=== PATIENT | male | born 1970 | race Caucasian/White ===

== ENCOUNTER 2019-08-06 08:16 | Day surgery (SDC) | payer BC ==
[~2019-08-06] VITALS: Ht 177.8 cm; Wt 121.1 kg
[~2019-08-06 08:16] MED LIST: ACEBUTCAFT PO; ALBIPROI INH; AZIT250 PO; COLD; COUGH; CREON DR 12,001 EACH PO; HYDACE5 PO; IBUP800; ONDA4 PO; OXYACE5T PO; PRED20 PO; SULTRIDS PO; TOBDEXOPSU OD
[2019-08-06] MEDS ORDERED: LOSA50 (08:33)
[2019-08-06] MEDS ORDERED: OMEPRAZOLE MAGN20 MG (08:33)
[2019-08-06] MEDS ORDERED: IBUP100S (08:33)
--- NOTE | 2019-08-06 09:16 | NUR ---
08/06/19 0916 Flaquita Hull PT UPDATED ON STATUS. ADJUSTED HEAD OF BED FOR COMFORT. CALL LIGHT IN REACH.
== END 2019-08-06 11:11 | disposition home or self-care (01) ==
LOC: ORSCSDS 08:16
PROVIDERS: Student in an Organized Health Care Education/Training Program
PROC: 0DBM8ZX Excision of Descending Colon, Via Natural or Artificial Opening Endoscopic, Diagnostic (ICD-10-PCS; principal; 2019-08-06 09:00)
PROC: 0DB58ZX Excision of Esophagus, Via Natural or Artificial Opening Endoscopic, Diagnostic (ICD-10-PCS; principal; 2019-08-06 09:00)
PROC: 0DBL8ZX Excision of Transverse Colon, Via Natural or Artificial Opening Endoscopic, Diagnostic (ICD-10-PCS; principal; 2019-08-06 09:00)
PROC: 0DBN8ZX Excision of Sigmoid Colon, Via Natural or Artificial Opening Endoscopic, Diagnostic (ICD-10-PCS; principal; 2019-08-06 09:00)
DX: K21.9 Gastro-esophageal reflux disease without esophagitis (principal); K22.70 Barrett's esophagus without dysplasia; Z12.11 Encounter for screening for malignant neoplasm of colon; K63.5 Polyp of colon; K44.9 Diaphragmatic hernia without obstruction or gangrene; I10 Essential (primary) hypertension; G47.33 Obstructive sleep apnea (adult) (pediatric); F17.210 Nicotine dependence, cigarettes, uncomplicated; E66.01 Morbid (severe) obesity due to excess calories; Z68.39 Body mass index [BMI] 39.0-39.9, adult; Z79.899 Other long term (current) drug therapy
CPT/HCPCS: 88305; J2405; J2704; J7040

== ENCOUNTER 2021-08-24 09:57 | Inpatient (IN) | payer BC ==
[~2021-08-24] VITALS: Ht 180.3 cm; Wt 122.5 kg
[~2021-08-24 09:57] MED LIST changes: +IBUP100S; +LOSA50; +OMEPRAZOLE MAGN20 MG
[2021-08-24 10:24] LABS: BASOPHILS ABSOLUTE AUTO 0.03 K/mm3 (0.00-0.23); BASOPHILS PERCENT AUTO 1 % (0-2); EOSINOPHILS ABSOLUTE AUTO 0.02 K/mm3 (0.00-0.68); EOSINOPHILS PERCENT AUTO 0 % (0-6); Hematocrit 48.3 % (37.0-53.0); Hemoglobin 16.1 g/dL (13.5-17.5); IMMATURE GRAN ABSOLUTE AUTO 0.02 K/mm3 (0.00-0.10); IMMATURE GRAN PERCENT AUTO 0 % (0-1); LYMPHOCYTES ABSOLUTE AUTO 1.47 K/mm3 (0.84-5.20); LYMPHOCYTES PERCENT AUTO 29 % (21-46); MONOCYTES ABSOLUTE AUTO 0.29 K/mm3 (0.16-1.47); MONOCYTES PERCENT AUTO 6 % (4-13); Mean Corpuscular HGB 29.7 pg (26.0-34.0); Mean Corpuscular HGB Conc 33.3 g/dL (31.5-36.5); Mean Corpuscular Volume 89 fL (80-100); Mean Platelet Volume 9.4 fL (9.1-12.4); NEUTROPHILS ABSOLUTE AUTO 3.31 K/mm3 (1.96-9.15); NEUTROPHILS PERCENT AUTO 64 % (41-73); Platelet Count 208 K/mm3 (150-400); RDW Coefficient Variation 12.4 % (11.7-14.2); RDW Standard Deviation 40.6 fL (35.1-46.3); Red Blood Cell Count 5.42 M/mm3 (4.30-5.90); White Blood Cell Count 5.14 K/mm3 (4.00-11.30)
[2021-08-24 10:43] LABS: Anion Gap 5 mmol/L (6-16); Blood Urea Nitrogen 15 mg/dL (8-24); Bun/Creatinine Ratio 14.2 (12.0-20.0); CO2, Blood 30 mmol/L (21-32); Calcium, Blood 9.5 mg/dL (8.5-10.1); Chloride, Blood 105 mmol/L (98-108); Creatinine, Blood 1.06 mg/dL (0.60-1.20); Glomerular Filtration Rate >60 (60-); Glucose, Blood 151 mg/dL (70-99); Potassium, Blood 4.3 mmol/L (3.5-5.5); Sodium, Blood 140 mmol/L (136-145); Troponin I <0.015 ng/mL (0.000-0.040)
[2021-08-24 13:43] LABS: Influenza A, PCR NEGATIVE (NEGATIVE); Influenza B, PCR NEGATIVE (NEGATIVE); Resp Syncytial Virus, PCR NEGATIVE (NEGATIVE); SARS-Cov-2 (COVID-19) PCR, MMC NEGATIVE (NEGATIVE)
[2021-08-24 14:47] LABS: CHOL/HDL RATIO 4.2; Cholesterol 191 mg/dL (50-200); HDL Cholesterol 45 mg/dL (>39); Low Density Lipoprotein Chol 91 mg/dL (0-110); Triglycerides 276 mg/dL (30-160); Very Low Density Lipoprot Chol 55 mg/dL (6-32)
--- NOTE | 2021-08-25 06:11 | NUR ---
VSS. IND IN ROOM. DENIES CP/N/V. TROPONINS NEGATIVE THROUGHOUT SHIFT. STRESS TEST 08/25. NO ISSUES THROUGHOUT SHIFT. WILL CONTINUE TO MONITOR
--- NOTE | 2021-08-25 17:40 | NUR ---
PATIENT CURRENTLY SITTING UP IN CHAIR WITH NO SIGNS OR SYMPTOMS ACUTE DISTRESS NOTED. CALL LIGHT AND WATER IN EASY REACH. ABLE TO MAKE NEEDS AND WANTS KNOWN. FIRST PART OF STRESS TEST DONE TODAY, 2ND PART WILL BE TOMORROW MORNING. PATIENT IS TO BE NPO AFTER MIDNIGHT FOR STRESS TEST TOMORROW. NO CAFFEEINE WELL. PATIENT IS AWARE OF THESE DIRECTIONS. WILL MONITOR.
--- NOTE | 2021-08-26 04:06 | NUR ---
SHIFT SUMMARY PT ON TELE, SINUS 70. NO O2. CPAP. L AC IV. CARDIAC DIET. SECOND PART OF STRESS TEST TO BE DONE TODAY. NPO AFTER MIDNIGHT. PT A&O. NO ACUTE CHANGES THROUGHOUT SHIFT. CALL LIGHT WITHIN REACH. WILL CONTINUE TO MONITOR.
[2021-08-26] MEDS ORDERED: Amlodipine Bes2.5 MG PO (16:50)
[2021-08-26] MEDS ORDERED: LOSA50 PO (16:50)
[2021-08-26] MEDS ORDERED: NITROGLYCERIN0.4 M3 SL (16:51)
--- NOTE | 2021-08-26 17:07 | NUR ---
DISCHARGE: DISCHARGE INSTUCTIONS GIVEN TO PATIENT AT THIS TIME. PATIENT VERBALIZED UNDERSTANDING. PATIENT INSTUCTED TO KEEP FOLLOW UP APPOINTMENT WITH DR VILLELA WITHIN ONE WEEK. TO TAKE MEDICATIONS ORDERED. PRESCRIPTIONS FAXED TO [facility], CONFIRMATING RECIEVED. NO SIGNS OR SYMPTOMS ACUTE DISTRESS NOTED. NO COMPLAINTS OF CHEST PAIN.
== END 2021-08-26 17:14 | disposition home or self-care (01) | DRG 313 ==
LOC: ER 09:57 → SURS 14:00
PROVIDERS: Student in an Organized Health Care Education/Training Program; ADMIT Family Medicine
DX: R07.89 Other chest pain (principal); I16.0 Hypertensive urgency; K21.9 Gastro-esophageal reflux disease without esophagitis; I10 Essential (primary) hypertension; E78.5 Hyperlipidemia, unspecified; Z20.822 Contact with and (suspected) exposure to COVID-19; E66.01 Morbid (severe) obesity due to excess calories; G47.33 Obstructive sleep apnea (adult) (pediatric); K44.9 Diaphragmatic hernia without obstruction or gangrene; E66.9 Obesity, unspecified; I25.10 Atherosclerotic heart disease of native coronary artery without angina pectoris; Z88.0 Allergy status to penicillin; Z88.8 Allergy status to other drugs, medicaments and biological substances; F41.9 Anxiety disorder, unspecified; Z98.890 Other specified postprocedural states; Z90.49 Acquired absence of other specified parts of digestive tract; F17.210 Nicotine dependence, cigarettes, uncomplicated; Z68.37 Body mass index [BMI] 37.0-37.9, adult; Z79.899 Other long term (current) drug therapy
CPT/HCPCS: 0241U; 36415; 71275; 78452; 80048; 80061; 83036; 84484; 85025; 93005; 93010; 93017; 96374; 99285-25; A9270; A9500; J0706; J1650; J2765; J2785; Q9967

== ENCOUNTER 2022-10-04 11:58 | Day surgery (SDC) | payer BC ==
[~2022-10-04] VITALS: Ht 177.8 cm; Wt 123.4 kg
[~2022-10-04 11:58] MED LIST changes: +Amlodipine Bes2.5 MG PO; +LOSA50 PO; +NITROGLYCERIN0.4 M3 SL
[2022-10-04] MEDS ORDERED: IBUP800 (12:49)
== END 2022-10-04 14:33 | disposition home or self-care (01) ==
LOC: ORSCSDS 11:58
PROVIDERS: Student in an Organized Health Care Education/Training Program
PROC: 0DD58ZX Extraction of Esophagus, Via Natural or Artificial Opening Endoscopic, Diagnostic (ICD-10-PCS; principal; 2022-10-04 14:00)
PROC: 0DB58ZX Excision of Esophagus, Via Natural or Artificial Opening Endoscopic, Diagnostic (ICD-10-PCS; principal; 2022-10-04 14:00)
PROC: 0DBM8ZX Excision of Descending Colon, Via Natural or Artificial Opening Endoscopic, Diagnostic (ICD-10-PCS; principal; 2022-10-04 14:00)
PROC: 0DBN8ZX Excision of Sigmoid Colon, Via Natural or Artificial Opening Endoscopic, Diagnostic (ICD-10-PCS; principal; 2022-10-04 14:00)
DX: K22.70 Barrett's esophagus without dysplasia (principal); Z12.11 Encounter for screening for malignant neoplasm of colon; Z86.010 Personal history of colon polyps; K21.9 Gastro-esophageal reflux disease without esophagitis; K63.5 Polyp of colon; K44.9 Diaphragmatic hernia without obstruction or gangrene; G47.33 Obstructive sleep apnea (adult) (pediatric); F17.210 Nicotine dependence, cigarettes, uncomplicated; I10 Essential (primary) hypertension; Z79.899 Other long term (current) drug therapy; E66.9 Obesity, unspecified; Z68.39 Body mass index [BMI] 39.0-39.9, adult
CPT/HCPCS: 88305; J0330; J0461; J2370; J2405; J2704; J7120; Q9968

== ENCOUNTER 2023-04-27 09:50 | Day surgery (SDC) | payer BC ==
[~2023-04-27] VITALS: Ht 177.8 cm; Wt 122.9 kg
[2023-04-27] MEDS ORDERED: NEBI5 PO (11:01)
[2023-04-27 12:51] VITALS: BP 129/78
== END 2023-04-27 12:46 | disposition home or self-care (01) ==
LOC: ORSCSDS 09:50
PROVIDERS: Specialist
PROC: 0DJ08ZZ Inspection of Upper Intestinal Tract, Via Natural or Artificial Opening Endoscopic (ICD-10-PCS; principal; 2023-04-27 11:30)
DX: K22.70 Barrett's esophagus without dysplasia (principal); Z87.19 Personal history of other diseases of the digestive system; K44.9 Diaphragmatic hernia without obstruction or gangrene; I10 Essential (primary) hypertension; G47.33 Obstructive sleep apnea (adult) (pediatric); F17.210 Nicotine dependence, cigarettes, uncomplicated; Z79.899 Other long term (current) drug therapy
CPT/HCPCS: J2704; J7120

== ENCOUNTER → 2023-10-05 | Outpatient (CLI) | payer BC ==
[~2023-10-05] MED LIST changes: +NEBI5 PO
[2023-10-05 12:43] LABS: BASOPHILS ABSOLUTE AUTO 0.02 K/mm3 (0.00-0.23); BASOPHILS PERCENT AUTO 0 % (0-2); EOSINOPHILS PERCENT AUTO 1 % (0-6); Hematocrit 43.4 % (37.0-53.0); Hemoglobin 14.9 g/dL (13.5-17.5); IMMATURE GRAN ABSOLUTE AUTO 0.02 K/mm3 (0.00-0.10); IMMATURE GRAN PERCENT AUTO 0 % (0-1); LYMPHOCYTES PERCENT AUTO 18 % (21-46); MONOCYTES ABSOLUTE AUTO 0.51 K/mm3 (0.16-1.47); MONOCYTES PERCENT AUTO 6 % (4-13); Mean Corpuscular HGB 30.6 pg (26.0-34.0); Mean Corpuscular HGB Conc 34.3 g/dL (31.5-36.5); Mean Corpuscular Volume 89 fL (80-100); Mean Platelet Volume 9.2 fL (9.1-12.4); NEUTROPHILS PERCENT AUTO 75 % (41-73); Platelet Count 173 K/mm3 (150-400); RDW Coefficient Variation 12.7 % (11.7-14.2); RDW Standard Deviation 40.9 fL (35.1-46.3); Red Blood Cell Count 4.87 M/mm3 (4.30-5.90); White Blood Cell Count 8.45 K/mm3 (4.00-11.30)
[2023-10-05 12:56] LABS: Albumin/Globulin Ratio 1.1 (0.8-1.8); Bilirubin, Total 0.8 mg/dL (0.1-1.0); Bun/Creatinine Ratio 11.6 (12.0-20.0); Calcium, Blood 9.5 mg/dL (8.5-10.1); Creatinine, Blood 1.21 mg/dL (0.60-1.20); Globulin, Blood 3.5 g/dL (2.2-4.0); Potassium, Blood 4.2 mmol/L (3.5-5.5); Total Protein, Blood 7.5 g/dL (6.4-8.2)
== END | disposition home or self-care (01) ==
LOC: LAB 12:35 → LAB SHORT 12:35
PROVIDERS: Chiropractor
DX: R06.09 Other forms of dyspnea (principal); R10.13 Epigastric pain
CPT/HCPCS: 80053; 83690; 83880; 84484; 85025; 85379

== ENCOUNTER 2025-01-16 10:57 | Day surgery (SDC) | payer BC ==
[~2025-01-16] VITALS: Ht 177.8 cm; Wt 128.2 kg
[~2025-01-16 10:57] MED LIST changes: +NS 500 ML IV ONE
[2025-01-16] MEDS ORDERED: METF500 PO (11:43)
[2025-01-16] MEDS ORDERED: DYAZIDE 37.5-21 EACH PO (11:46)
[2025-01-16] MEDS ORDERED: NS 500 ML IV ONE (12:06)
--- NOTE | 2025-01-16 12:17 | NUR ---
01/16/25 1217 LombardoPartha VERSED NOT GIVEN DUE TO PT ALLERGY TO DIAZEPAM. DR GUZMAN NOTIFIED AND OK WITH NOT GIVING VERSED.
[2025-01-16 13:02] VITALS: BP 142/88
== END 2025-01-16 13:18 | disposition home or self-care (01) ==
LOC: ORSCSDS 10:57
PROVIDERS: Orthopaedic Surgery
PROC: 01N54ZZ Release Median Nerve, Percutaneous Endoscopic Approach (ICD-10-PCS; principal; 2025-01-16 13:10)
PROC: 0XBG0ZZ Excision of Right Wrist Region, Open Approach (ICD-10-PCS; 2025-01-16 13:10)
DX: G56.01 Carpal tunnel syndrome, right upper limb (principal); R22.30 Localized swelling, mass and lump, unspecified upper limb; E11.9 Type 2 diabetes mellitus without complications; K21.9 Gastro-esophageal reflux disease without esophagitis; I10 Essential (primary) hypertension; Z79.84 Long term (current) use of oral hypoglycemic drugs; Z79.899 Other long term (current) drug therapy
CPT/HCPCS: 82947; J7040

== ENCOUNTER 2025-09-06 12:43 | Day surgery (SDC) | payer BC ==
[~2025-09-06] VITALS: Ht 175.3 cm; Wt 130.4 kg
[~2025-09-06 12:43] MED LIST changes: +DYAZIDE 37.5-21 EACH PO; +METF500 PO; -NS 500 ML IV ONE
[2025-09-06] MEDS ORDERED: ASPI81CH (13:19)
[2025-09-06] MEDS ORDERED: FURO20 (13:23)
[2025-09-06] MEDS ORDERED: Benzocaine Oral Spray 0.5ML UD ONE (14:02)
[2025-09-06 15:04] VITALS: BP 111/62
== END 2025-09-06 14:55 | disposition home or self-care (01) ==
LOC: ORSCSDS 12:43
PROVIDERS: Internal Medicine Gastroenterology
PROC: 0DB58ZX Excision of Esophagus, Via Natural or Artificial Opening Endoscopic, Diagnostic (ICD-10-PCS; principal; 2025-09-06 15:15)
DX: K22.70 Barrett's esophagus without dysplasia (principal); I10 Essential (primary) hypertension; Z87.891 Personal history of nicotine dependence; E66.01 Morbid (severe) obesity due to excess calories; Z68.41 Body mass index [BMI] 40.0-44.9, adult; E11.9 Type 2 diabetes mellitus without complications; Z79.82 Long term (current) use of aspirin; Z79.84 Long term (current) use of oral hypoglycemic drugs; Z79.899 Other long term (current) drug therapy
CPT/HCPCS: 82947; 88305; A9270; J2704; J7120